=== PATIENT | male | born 1965 | race Caucasian/White ===

== ENCOUNTER 2022-09-05 07:48 | Outpatient (CLI) | payer BC, SELFPAY ==
--- NOTE | ~2022-09-05 | MR_ITS ---
EXAMINATION: MR shoulder RT wo con DATE: 09/05/2022 08:44 INDICATION: Right shoulder pain TECHNIQUE: Magnetic resonance imaging (MRI) of the right shoulder was performed without intravenous c ontrast. Sequences included axial PD-weighted FS FSE, coronal oblique PD-weighted FS FSE, coronal obl ique T2-weighted FS FSE, sagittal PD-weighted FS FSE, and sagittal T1-weighted SE. COMPARISON: None. FINDINGS: Coracoacromial arch: The acromion undersurface is minimally curved in morphology (type I-II). The coracoacromial ligament is normal. Severe acromioclavicular osteoarthritis. Rotator cuff: Mild infraspinatus tendinopathy without tear. The supraspinatus, teres minor and subscapularis tendon s are normal. Normal rotator cuff muscle bulk and signal. Biceps tendon, glenoid labrum and glenohumeral cartilage: Long head of the biceps tendon is normal. Increased signal in the substance of the superior and anter ior labrum consistent with labral tear. Increased signal at the base of the anterosuperior labrum lik junaid represents continuation of the tear although potentially could represent a separate normal sublin gual foramen. Glenohumeral cartilage is normal. Fluid: Physiologic amount of fluid in the glenohumeral joint and biceps tendon sheath. No loose osteochondr al bodies. No abnormally increased fluid signal in the subacromial/subdeltoid bursa to suggest bursit is. Bones: Bone alignment is normal. No fracture or pathologic marrow replacing process. IMPRESSION: 1. Tear of the anterosuperior to superior glenoid labrum. 2. Mild infraspinatus tendinopathy without tear. 3. Severe right acromioclavicular osteoarthritis. Reviewed, dictated and finalized at location A. ICAL LABORATORY AIDE
== END 2022-09-05 07:49 | disposition home or self-care (01) ==
LOC: ANHIMG 07:53
PROVIDERS: PCP Family Medicine; Visit Provider Orthopaedic Surgery
DX: M19.011 Primary osteoarthritis, right shoulder (principal); S43.431A Superior glenoid labrum lesion of right shoulder, initial encounter; M75.41 Impingement syndrome of right shoulder; X58.XXXA Exposure to other specified factors, initial encounter
CPT/HCPCS: 73221

== ENCOUNTER 2023-05-20 07:29 | Outpatient (CLI) | payer BC, SELFPAY ==
--- NOTE | ~2023-05-20 | MR_ITS ---
EXAMINATION: MR knee RT wo con DATE: 05/20/2023 08:07 INDICATION: Right knee pain TECHNIQUE: Magnetic resonance imaging (MRI) of the right knee was performed without intravenous contr ast. Sequences included coronal PD-weighted FSE, coronal PD-weighted FS FSE, sagittal T2-weighted FS E, sagittal PD-weighted FS FSE and axial PD weighted fat saturated FSE. COMPARISON: None. FINDINGS: Medial compartment: Radial tear/avulsion at the posterior root of the medial meniscus. There is increased intrasubstance signal extending medially through the posterior horn but which does not unambiguously contact the art icular surface in this remains indeterminate for more medial extension of a longitudinal horizontal t ear plane versus mucoid degeneration. Partial-thickness cartilage loss with smooth chondral surface a long the medial half of the medial tibial plateau. Partial-thickness chondral ulceration with some sc attered mild surface regular date along the anterior to central weightbearing medial femoral condyle. There is prominent subarticular edema-like marrow signal change at the medial aspect of the central weightbearing medial femoral condyle which surrounds curvilinear low signal in the immediate subchond ral bone consistent with nondisplaced trabecular fracture line which could be due to either discrete trauma or stress fracture related to altered stress distribution resulting from a meniscal tear. Lateral compartment: Lateral meniscus is normal. Articular cartilage is normal. Patellofemoral compartment: Articular cartilage is normal. Ligaments and tendons: Anterior and posterior cruciate ligaments are normal. The medial collateral ligament and fibular nancy ateral ligament complex are normal. Mild tendinopathy at the distal quadriceps and proximal distal pa tellar tendons. Small enthesophyte at the patellar insertion of the distal quadriceps tendon. The vis ualized medial and lateral hamstring tendons as well as the iliotibial band are normal. Fluid: Physiologic amount of fluid in the joint space. No loose osteochondral bodies identified. Small Schaeffer 's cyst. IMPRESSION: 1. Radial tear/avulsion at the posterior root of the medial meniscus. 2. Marrow edema surrounding a nondisplaced subarticular fracture line along the medial margin of the central weightbearing medial femoral condyle which could represent either impaction fracture line dis crete trauma or a stress fracture related to altered stress suspicion resulting from the meniscal tea r. 3. 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 Reviewed, dictated and finalized at location A. IMPRESSION: 1. Radial tear/avulsion at the posterior root of the medial meniscus. 2. Marrow edema surrounding a nondisplaced subarticular fracture line along the medial margin of the central weightbearing medial femoral condyle which could represent either impaction fracture line discrete trauma or a stress fracture r elated to altered stress suspicion resulting from the meniscal tear. 3. Mild osteoarthritis with moderate grade chondromalacia in the renal compartm ent.
== END 2023-05-20 07:30 | disposition home or self-care (01) ==
PROVIDERS: PCP Family Medicine; Visit Provider Orthopaedic Surgery
DX: S83.241A Other tear of medial meniscus, current injury, right knee, initial encounter (principal); R60.9 Edema, unspecified; M17.11 Unilateral primary osteoarthritis, right knee; M94.28 Chondromalacia, other site
CPT/HCPCS: 73721

== ENCOUNTER → 2023-07-21 08:04 | Outpatient (CLI) | payer BC, SELFPAY ==
--- NOTE | ~2023-07-21 | CT_ITS ---
EXAMINATION: CT facial bones wo con DATE: 07/21/2023 08:31 INDICATION: Head injury. Facial swelling. TECHNIQUE: Computed tomography (CT) of the facial bones and maxillofacial region was performed withou t intravenous contrast. Automated exposure control and iterative reconstruction technique were employ ed. The dose-length product was 482.16 mGy-cm. COMPARISON: None. FINDINGS: The orbits are normal. There is left cheek soft tissue swelling. There is rightward deviati on of superior nasal septum and leftward deviation of inferior nasal septum. There is mild mucosal th ickening in the paranasal sinuses. There is no acute fracture. There are old fracture deformities of the nasal bones. The mastoid air cells are normal. IMPRESSION: 1. No acute fracture. Reviewed, dictated and finalized at location A. ET DEVELOPER IMPRESSION: 1. No acute fracture.
--- NOTE | ~2023-07-21 | XR_ITS ---
Left Hand Technique: PA, oblique, and lateral views were obtained. Clinical History: Middle finger pain Findings: No acute fracture or dislocation is seen. Osseous alignment is anatomic. There is mild dege nerative change of the third and fourth DIP joints. Probable minimal degenerative change of the secon d and third MCP joints. Soft tissues are unremarkable. Impression: Mild polyarticular osteoarthritic change, as above. Reviewed, dictated and finalized at location M. O TECH Impression: Mild polyarticular osteoarthritic change, as above.
--- NOTE | ~2023-07-21 | XR_ITS ---
Thoracic spine: Clinical Indication: Back pain AP and lateral views were performed. No fracture is seen. There is normal alignment of the vertebrae. The intervertebral disc spaces appe ar normal. Paravertebral soft tissues appear normal. Impression: No significant abnormalities noted. Reviewed, dictated and finalized at [facility]. TICE SUPPORT SPECIALIST Impression: No significant abnormalities noted.
== END ==
PROVIDERS: PCP Family Medicine; Visit Provider Family Medicine
DX: E88.09 Other disorders of plasma-protein metabolism, not elsewhere classified (principal); R22.0 Localized swelling, mass and lump, head; S01.01XA Laceration without foreign body of scalp, initial encounter; X58.XXXA Exposure to other specified factors, initial encounter; M19.042 Primary osteoarthritis, left hand
CPT/HCPCS: 70486; 72072; 73130

== ENCOUNTER 2024-05-17 15:30 | Outpatient (CLI) | payer BC, SELFPAY ==
--- NOTE | ~2024-05-17 | XR_ITS ---
XR chest 2V Ordering provider: Leti Campos, ANP History: 58 years Male with . Crackles in lungs . Comparison: None. FINDINGS: MEDIASTINUM: The cardiac silhouette is not enlarged. LUNGS: No infiltrates, effusions or pneumothorax. Nodule seen in the right lower lobe measuring 9 mm. 3 months follow-up advised. OTHER: No free air under the diaphragm. Degenerative changes of the spine. IMPRESSION: Nodule in the right lower lobe measuring 9 mm. Three-month low-dose CT follow-up advised. No acute cardiopulmonary pathology. Reviewed, dictated and finalized at location A. IMPRESSION: Nodule in the right lower lobe measuring 9 mm. Three-month low-dose CT follow-u p advised. No acute cardiopulmonary pathology.
== END 2024-05-17 15:31 | disposition home or self-care (01) ==
PROVIDERS: PCP Family Medicine; Visit Provider Nurse Practitioner Family
DX: R09.89 Other specified symptoms and signs involving the circulatory and respiratory systems (principal); R91.1 Solitary pulmonary nodule
CPT/HCPCS: 71046